=== PATIENT | female | born 1960 | race African-American/Black ===

== ENCOUNTER 2018-02-04 13:27 | Emergency (ER) | payer MEDICAID ==
[~2018-02-04] VITALS: Ht 157.5 cm; Wt 86.2 kg
[2018-02-04 13:47] VITALS: BP 104/83
[2018-02-04] MEDS ORDERED: Albuterol ud Inhalation HHN ONE (14:00)
[2018-02-04] MEDS ORDERED: HYDROCHLOROTHIA25 MG ORAL (14:06)
[2018-02-04] MEDS ORDERED: IPRATROPIU0.2 MG/1 M HHN (14:06)
[2018-02-04] MEDS ORDERED: LORATADINE10 M1 PO (14:06)
[2018-02-04] MEDS ORDERED: OXYCODONE-ACET1 EAC3 ORAL (14:06)
[2018-02-04] MEDS ORDERED: AMITRIPTYLINE100 MG ORAL (14:06)
[2018-02-04] MEDS ORDERED: IBUPROFEN200 MG ORAL (14:06)
[2018-02-04] MEDS ORDERED: TRIAMTERENE-HC1 EAC7 ORAL (14:06)
[2018-02-04] MEDS ORDERED: ARNUITY ELLIP200 MCG IH (14:06)
[2018-02-04] MEDS ORDERED: LOSARTAN POTAS100 MG ORAL (14:06)
[2018-02-04] MEDS ORDERED: PHENERGAN SUPP25 MG PO (14:06)
[2018-02-04 14:24] LABS: BASOPHILS % (AUTO) 0.8 % (0.0-2.0); EOSINOPHILS % (AUTO) 2.2 % (0.0-3.0); HEMOGLOBIN 15.2 G/DL (12.0-16.0); LYMPHOCYTES % (AUTO) 29.2 % (20.0-45.0); MEAN CORPUSCULAR VOLUME 94 FL (80-99); NEUTROPHILS % (AUTO) 62.8 % (45.0-75.0); PLATELET COUNT 261 K/UL (150-450); RED BLOOD COUNT 4.68 M/UL (4.20-5.40); RED CELL DISTRIBUTION WIDTH 10.5 % (11.6-14.8); WHITE BLOOD COUNT 4.4 K/UL (4.8-10.8)
--- NOTE | 2018-02-04 14:30 | Emergency Room Report ---
History of Present Illness General Chief Complaint: Upper Respiratory Illness Source: Patient Present Illness HPI Patient has a week of upper respiratory symptoms with cough with productive phlegm (yellow). She now presents with bilateral chest discomfort with the cough. This is bandlike upper abdomen. The last time she had this she had problems with her gallbladder. She not been vomiting and feels no nausea. She tried using a new inhaler and it just causes her to have increased chest tightness (steroid - yellow). This is not her worst attack. Pain is rated at 6 /10, more with coughing. Some headache. No NVD, dysuria, rashes, change in bowels, joint pain. She takes percocet for chronic back pain intermittently. Allergies: Coded Allergies: No Known Allergies (Unverified , 02/04/18) Patient History Past Medical History: see triage record, other - chronic back pain, gall stones Social History: Denies: smoking Social History Narrative from home Now: No Reviewed Nursing Documentation: PMH: Agreed; PSxH: Agreed Nursing Documentation-PMH Past Medical History: No History, Except For Hx Hypertension: Yes Hx COPD: Yes Review of Systems All Other Systems: negative except mentioned in HPI Physical Exam Vital Signs Date Time Temp Pulse Resp B/P (MAP) Pulse Ox O2 Delivery O2 Flow Rate FiO2 02/04/18 13:31 98.1 95 12 152/92 97 Room Air 02/04/18 14:11 21 Sp02 EP Interpretation: reviewed, normal General Appearance: well appearing, no apparent distress, GCS 15 Head: normocephalic Eyes: bilateral eye normal inspection, bilateral eye PERRL, bilateral eye EOMI ENT: moist mucus membranes Neck: supple Respiratory: wheezing, expiration, other - some tenderness with palpation lower chest wall Cardiovascular #1: regular rate, rhythm Cardiovascular #2: 2+ radial (R) Gastrointestinal: normal inspection, normal bowel sounds, non tender, no mass, non-distended Genitourinary: no CVA tenderness Musculoskeletal: back normal, gait/station normal, normal range of motion Neurologic: alert, oriented x3, grossly normal Psychiatric: mood/affect normal Skin: normal inspection, warm/dry Medical Decision Making Diagnostic Impression: Primary Impression: Asthmatic bronchitis Qualified Codes: J45.41 - Moderate persistent asthma with (acute) exacerbation Additional Impressions: UTI (urinary tract infection) Qualified Codes: N30.00 - Acute cystitis without hematuria Chest pain Qualified Codes: R07.9 - Chest pain, unspecified ER Course Patient presents with URI, wheezing and chest pain. DDX: AMI, pleurisy, bronchospasm, pancreatitis, chest strain amongst others. Evaluation with EKG, CXR and labs. Treatment with albuterol, steroids and hydration. EKG without injury. CXR no infiltrate. Labs with pyuria. Levaquin begun for UTI. Improved with treatment. Chest sy resolved with treatment. Patient stable for outpatient observation and treatment. Laboratory Tests Test 02/04/18 14:11 02/04/18 14:45 White Blood Count 4.4 K/UL (4.8-10.8) L Red Blood Count 4.68 M/UL (4.20-5.40) Hemoglobin 15.2 G/DL (12.0-16.0) Hematocrit 44.0 % (37.0-47.0) Mean Corpuscular Volume 94 FL (80-99) Mean Corpuscular Hemoglobin 32.4 PG (27.0-31.0) H Mean Corpuscular Hemoglobin Concent 34.4 G/DL (32.0-36.0) Red Cell Distribution Width 10.5 % (11.6-14.8) L Platelet Count 261 K/UL (150-450) Mean Platelet Volume 7.2 FL (6.5-10.1) Neutrophils (%) (Auto) 62.8 % (45.0-75.0) Lymphocytes (%) (Auto) 29.2 % (20.0-45.0) Monocytes (%) (Auto) 5.0 % (1.0-10.0) Eosinophils (%) (Auto) 2.2 % (0.0-3.0) Basophils (%) (Auto) 0.8 % (0.0-2.0) Prothrombin Time 10.3 SEC (9.30-11.50) Prothrombin Time INR 1.0 (0.9-1.1) PTT 30 SEC (23-33) Sodium Level 141 MMOL/L (136-145) Potassium Level 4.0 MMOL/L (3.5-5.1) Chloride Level 104 MMOL/L (98-107) Carbon Dioxide Level 28 MMOL/L (21-32) Anion Gap 9 mmol/L (5-15) Blood Urea Nitrogen 10 mg/dL (7-18) Creatinine 0.6 MG/DL (0.55-1.30) Estimate Glomerular Filtration Rate > 60 mL/min (>60) Glucose Level 107 MG/DL (74-106) H Calcium Level 9.7 MG/DL (8.5-10.1) Total Bilirubin 0.3 MG/DL (0.2-1.0) Aspartate Amino Transferase (AST) 19 U/L (15-37) Alanine Aminotransferase (ALT) 32 U/L (12-78) Alkaline Phosphatase 88 U/L (46-116) Troponin I 0.000 ng/mL (0.000-0.056) Total Protein 8.5 G/DL (6.4-8.2) H Albumin 4.0 G/DL (3.4-5.0) Globulin 4.5 g/dL Albumin/Globulin Ratio 0.9 (1.0-2.7) L Lipase 90 U/L (73-393) Urine Color Pale yellow Urine Appearance Clear Urine pH 6 (4.5-8.0) Urine Specific [place] 1.020 (1.005-1.035) Urine Protein Negative (NEGATIVE) Urine Glucose (UA) Negative (NEGATIVE) Urine Ketones Negative (NEGATIVE) Urine Blood 1+ (NEGATIVE) H Urine Nitrite Negative (NEGATIVE) Urine Bilirubin Negative (NEGATIVE) Urine Urobilinogen Normal MG/DL (0.0-1.0) Urine Leukocyte Esterase 3+ (NEGATIVE) H Urine RBC 0-2 /HPF (0 - 2) Urine WBC 5-10 /HPF (0 - 2) H Urine Squamous Epithelial Cells Few /LPF (NONE/OCC) Urine Bacteria Few /HPF (NONE) Urine Mucus Few /LPF (NONE/OCC) H Microbiology Date/Time Source Procedure Growth Status 02/04/18 14:11 Nasal Nares Influenza Types A,B Antigen (BOUCHRA) - Final Complete EKG Diagnostic Results Rate: normal Rhythm: NSR ST Segments: no acute changes - LAE Rhythm Strip Diag. Results EP Interpretation: yes Rhythm: NSR, no PVC's, no ectopy Chest X-Ray Diagnostic Results Chest X-Ray Diagnostic Results : Chest X-Ray Ordered: Yes # of Views/Limited/Complete: 1 View Indication: Other EP Interpretation: Yes Interpretation: no consolidation, no effusion, no pneumothorax Impression: No acute disease Electronically Signed by: Electronically signed by Onesimo Hernandez MD Last Vital Signs Date Time Temp Pulse Resp B/P (MAP) Pulse Ox O2 Delivery O2 Flow Rate FiO2 02/04/18 15:22 98.2 95 17 127/100 100 Room Air 02/04/18 14:23 21 Status: improved Disposition: HOME, SELF-CARE Condition: Improved Scripts Guaifenesin/Codeine Phos* (ROBITUSSIN AC*) 118 Ml Liquid 5 ML ORAL Q6H PRN for For Cough, #90 ML 0 Refills Prov: Onesimo Hernandez MD 02/04/18 Albuterol Sulfate* (ALBUTEROL SULFATE MDI*) 8.5 Gm Hfa.aer.ad 2 PUFF INH Q6H, #1 EA 1 Refill Prov: Onesimo Hernandez MD 02/04/18 Levofloxacin* (LEVAQUIN*) 500 Mg Tablet 500 MG ORAL DAILY, #6 TAB Prov: Onesimo Hernandez MD 02/04/18 Prednisone* (PREDNISONE*) 20 Mg Tablet 40 MG ORAL DAILY, #6 TAB Prov: Onesimo Hernandez MD 02/04/18 Referrals: NOT APPLICABLE THIS PATIENT,RE (PCP) Onesimo Hernandez MD Feb 04, 2018 14:30
[2018-02-04 14:35] LABS: ANION GAP 9 mmol/L (5-15); BLOOD UREA NITROGEN 10 mg/dL (7-18); CALCIUM 9.7 MG/DL (8.5-10.1); CARBON DIOXIDE 28 MMOL/L (21-32); CHLORIDE 104 MMOL/L (98-107); CREATININE 0.6 MG/DL (0.55-1.30); SODIUM 141 MMOL/L (136-145)
[2018-02-04 14:38] LABS: ALANINE AMINOTRANSFERASE 32 U/L (12-78); ALBUMIN/GLOBULIN RATIO 0.9 (1.0-2.7); ALKALINE PHOSPHATASE 88 U/L (46-116); ASPARTATE AMINO TRANSFERASE 19 U/L (15-37); BILIRUBIN,TOTAL 0.3 MG/DL (0.2-1.0)
[2018-02-04 14:54] LABS: APPEARANCE,URINE CLEAR; BILIRUBIN, URINE NEGATIVE (NEGATIVE); COLOR,URINE PALE YELLOW; GLUCOSE, URINE (UA) NEGATIVE (NEGATIVE); KETONES,URINE NEGATIVE (NEGATIVE); LEUKOCYTE ESTERASE ,URINE 3+ (NEGATIVE); NITRITE,URINE NEGATIVE (NEGATIVE); PH,URINE 6 (4.5-8.0); PROTEIN,URINE NEGATIVE (NEGATIVE); UROBILINOGEN,URINE NORMAL MG/DL (0.0-1.0)
[2018-02-04 15:22] VITALS: BP 127/100
[2018-02-04] MEDS ORDERED: ALBUTEROL SULF8.5 GM INH (15:23)
[2018-02-04] MEDS ORDERED: LEVAQUIN500 MG ORAL (15:23)
[2018-02-04] MEDS ORDERED: GUAIFENESIN-CO118 M1 ORAL (15:23)
[2018-02-04] MEDS ORDERED: PREDNISONE20 MG ORAL (15:23)
[2018-02-04] MEDS ORDERED: Levofloxacin 500mg tab ORAL ONE (15:30)
--- NOTE | 2018-02-05 09:58 | Diagnostic Imaging Report ---
Indication: Cough Technique: One view of the chest Comparison: none Findings: Lungs and pleural spaces are clear. Heart size is normal. Impression: Negative
== END 2018-02-04 15:32 | disposition home or self-care (01) ==
LOC: EMR 14:08
DX: J45.41 Moderate persistent asthma with (acute) exacerbation (principal); N30.00 Acute cystitis without hematuria; R07.9 Chest pain, unspecified; I10 Essential (primary) hypertension; G89.29 Other chronic pain; J44.9 Chronic obstructive pulmonary disease, unspecified
CPT/HCPCS: 36415; 71045; 80053; 81003; 83690; 84484; 85025; 85610; 85730; 86710; 93005; 94640; 99284